=== PATIENT | female | born 1985 | race Caucasian/White ===

== ENCOUNTER → 2017-06-28 | Outpatient (CLI) | payer OTHER ==
[~2017-06-28] MED LIST: ASPI81TA28 PO; CALC500C3 PO; ENOX40IN SQ; HYDR-3419 PO; OPTIRAY 320 IV PRN; PEDICHW50 PO; birth control
--- NOTE | 2017-06-28 14:57 | DIAGNOSTIC IMAGING REPORT ---
(CHEST) THORAX WITH CLINICAL HISTORY: 32 years-old Female presenting with ASTHMA. TECHNIQUE: Multidetector CT imaging of the chest was performed after the administration of intravenous contrast. IV contrast: 93 mL of Optiray 320. A dose lowering technique was used consistent with the principles of ALARA (as low as reasonably achievable). COMPARISON: 03/30/2017. CT DOSE (mGy.cm): The estimated cumulative dose is 221.48 mGycm. FINDINGS: Tableau Analyst topogram: Unremarkable. On soft tissue windows, normal thyroid and thoracic inlet. Multiple enlarged mediastinal and bilateral hilar lymph nodes, similar to prior exam. Normal aorta. Normal heart size. No pericardial or pleural effusion. Upper abdomen normal. Splenules noted. On lung windows, dependent groundglass opacity likely atelectasis. Extensive nodular opacities in the apical segments of the upper lobes, left greater than right. These nodules appear to be either randomly distributed oriented perilymphatic distribution. Airways patent. On bone windows, normal osseous structures. IMPRESSION: 1. Nodularity in the upper lobes with mediastinal and bilateral hilar adenopathy. This appearance is most characteristic of sarcoidosis. Differential considerations include pneumoconiosis. Electronically signed by: Yossi Gallegos M.D. 06/28/2017 2:55 PM Dictated Date/Time: 06/28/2017 2:47 PM
== END | disposition home or self-care (01) ==
LOC: C.CTS 13:26
PROVIDERS: ATTEND Physician Assistant
DX: J45.909 Unspecified asthma, uncomplicated (principal); R91.8 Other nonspecific abnormal finding of lung field; R59.0 Localized enlarged lymph nodes

== ENCOUNTER 2017-08-05 05:03 | Day surgery (SDC) | payer OTHER ==
[2017-07-30 14:51] VITALS: BMI 29.0
[~2017-08-05] VITALS: Ht 154.9 cm; Wt 70.0 kg
[~2017-08-05 05:03] MED LIST changes: +AMT10 PO; -ASPI81TA28 PO; +BUPR-79 PO; +BUSP5TAB59 PO; -CALC500C3 PO; -ENOX40IN SQ; -HYDR-3419 PO; +MAGN400T6 PO; -OPTIRAY 320 IV PRN; -PEDICHW50 PO; +PRED10TA PO; -birth control
[2017-08-05 05:20] VITALS: Ht 154.9 cm; Wt 70.0 kg
[2017-08-05 05:26] VITALS: BP 115/64; PULSE 98; TEMP 37.3; O2SAT 97
[2017-08-05] MEDS ORDERED: LACTATED RINGER'S 1000ML 1,000 ML IV SCH (06:00)
[2017-08-05] MEDS ORDERED: ROCURONIUM BROMIDE 10 MG/ML 5 ML VIAL IV ONE (06:26)
[2017-08-05] MEDS ORDERED: LIDOCAINE HCL 2% 2 ML VIAL (20MG/ML) ONE (06:26)
[2017-08-05] MEDS ORDERED: FENTANYL CITRATE INJ 50 MCG/1 ML 2 ML VIAL ONE ×2 (06:26→07:29)
[2017-08-05] MEDS ORDERED: SUCCINYLCHOLINE CHLORIDE 20 MG/ML 10 ML VIAL IV ONE (06:26)
[2017-08-05] MEDS ORDERED: MIDAZOLAM HCL 1 MG/ML 2ML VIAL ONE (06:26)
[2017-08-05] MEDS ORDERED: PROPOFOL IV EMULSION 10 MG/ML 20 ML VIAL IV ONE ×2 (06:26→07:33)
[2017-08-05] MEDS ORDERED: DEXAMETHASONE SOD INJ 4 MG/ML VIAL ONE (06:26)
[2017-08-05] MEDS ORDERED: ONDANSETRON INJ 2 MG/ML 2 ML VIAL ONE (06:26)
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
--- NOTE | 2017-08-05 07:10 | History & Physical Bridge Note ---
H&P Re-Evaluation Bridge Note: I have examined the patient, reviewed the History & Physical and in the interval since the performance of the History & Physical I have noted the following changes of clinical significance: No changes noted
[2017-08-05] MEDS ORDERED: PHENYLEPHRINE HCL INJ 10 MG/ML VIAL ONE (07:44)
--- NOTE | 2017-08-05 08:09 | Discharge Instructions ---
Discharge Instructions Date of Service Aug 05, 2017. Admission Reason for Admission: Hilar Lymphadenopathy Discharge Discharge Diagnosis / Problem: granulomatous changes consistent with sarcoidosis Discharge Goals Goal(s): Diagnostic testing Activity Recommendations Activity Limitations: resume your previous activity . Instructions / Follow-Up Instructions / Follow-Up Follow-up in the [facility] pulmonary clinic Current Hospital Diet Patient's current hospital diet: Discharge Diet Recommended Diet: Regular Diet Procedures Procedures Performed: Flexible Bronchoscopy Endobronchial Ultrasound, Trans-Tracheal/Bronchial Needle Aspiration Bronchial Lavage Pending Studies Studies pending at discharge: no Medical Emergencies . Who to Call and When: Medical Emergencies: If at any time you feel your situation is an emergency, please call 911 immediately. . Non-Emergent Contact Non-Emergency issues call your: Brim Plater . . "Provider Documentation" section prepared by Jesse Zuñiga. . VTE Core Measure Inpt VTE Proph given/why not?: Treatment not indicated
--- NOTE | 2017-08-05 08:10 | Bronchoscopy Procedure Note ---
Bronchoscopy Procedure Note Procedure: Flexible-Bronchoscopy, EBUS, FNA, BAL Consent: Obtained through the patient placed into the chart Pre-Procedural Dx: Mediastinal lymphadenitis Post-Procedural Dx: Granulomatous changes consistent with sarcoidosis Analgesia: GETA Sedation: GETA Procedure: The Olympus video bronchoscope and EBUS scope were used for this procedure Initially the flexible bronchoscope was used for evaluation of the airways. An LMA Size 5 was used for this procedure and properly positioned Vocal Cords: Anatomically WNL Sub-Glottis & Trachea: Anatomically WNL Karen: Anatomically within normal limits Right bronchial tree: Right mainstem bronchus: Anatomically within normal limits Right upper lobe: Anatomically within normal limits Bronchus intermedius: Anatomically within normal limits Right middle lobe: Anatomically within normal limits Right lower lobe: Anatomically within normal limits Findings: No significant findings noted Left bronchial tree: Left mainstem bronchus: Anatomically within normal limits Left upper lobe: Anatomically within normal limits Lingula: Anatomically within normal limits Left lower lobe: Anatomically within normal limits Findings: No significant findings noted EBUS/CESAR: FNA Nicola Stations: 7: # of passes 4 4R: # of passes 3 4L: # of passes 3 BAL: Right upper lobe EBL: None Complications: None Follow-up: PACU
[2017-08-05] MEDS ORDERED: ATROPINE SULFATE 0.1 MG/ML 5ML SYR IV PRN (08:15)
[2017-08-05] MEDS ORDERED: ONDANSETRON INJ 2 MG/ML 2 ML VIAL IV PRN (08:15)
[2017-08-05] MEDS ORDERED: EpHEDrine SULFATE INJ 50 MG/ML AMP IV PRN (08:15)
[2017-08-05] MEDS ORDERED: FENTANYL CITRATE INJ 50 MCG/1 ML 2 ML VIAL IV PRN (08:15)
[2017-08-05] MEDS ORDERED: NALOXONE HCL 0.4 MG/1 ML VIAL/CARP ONE (08:16)
--- NOTE | 2017-08-05 09:44 | Anesthesiology Progress Note ---
Anesthesia Post Op Note Date & Time Aug 05, 2017 at 09:36 Vital Signs Pain Intensity: 0 Vital Signs Past 12 Hours Date Time Temp Pulse Resp B/P (MAP) Pulse Ox O2 Delivery O2 Flow Rate FiO2 08/05/17 09:25 113 17 111/70 95 Room Air 08/05/17 09:15 106 17 109/75 97 Nasal Cannula 2 08/05/17 09:05 100 16 109/75 97 Nasal Cannula 4 08/05/17 08:55 108 21 115/74 96 Nasal Cannula 4 08/05/17 08:45 113 19 102/86 96 Non-Rebreather 5 08/05/17 08:35 91 20 118/73 96 Non-Rebreather 15 08/05/17 08:25 111 16 86/43 89 Non-Rebreather 15 08/05/17 08:15 93 6 105/88 89 Non-Rebreather 15 08/05/17 08:12 36.1 102 6 130/73 78 Oxymask 15 08/05/17 05:26 37.3 98 16 115/64 (81) 97 Room Air Notes Mental Status: alert / awake / arousable, participated in evaluation Pt Amnestic to Procedure: Yes Nausea / Vomiting: adequately controlled Pain: adequately controlled Airway Patency, RR, SpO2: see Notes BP & HR: stable & adequate Hydration State: stable & adequate Anesthetic Complications: While the patient was being admitted to the PACU her respiratory rate and sp02 dropped. A jaw thrust was administered and her respiratory rate was around 6 breaths per minute. Her 02 sat was in the middle to high 80s. The 02 mask was switched to a nonrebreather mask and the patient was given 100 mcg of naloxone. With that her respiratory rate came up to 17, her sat came up to the low 90s and she gradually woke up. She was given a duoneb treatment and her room air sat at time of discharge was 94-95. Her lungs were clear.
[2017-08-05 09:45] VITALS: BP 118/59; PULSE 103; TEMP 37.2; O2SAT 94
[2017-08-05 10:14] VITALS: BP 100/58; PULSE 107; O2SAT 94
[2017-08-05 10:42] VITALS: BP 97/52; PULSE 112; TEMP 37.3; O2SAT 95
== END 2017-08-05 10:50 | disposition home or self-care (01) ==
LOC: C.ACU 05:03
PROVIDERS: ATTEND Internal Medicine Critical Care Medicine
DX: R05 Cough (principal); R06.02 Shortness of breath; R59.0 Localized enlarged lymph nodes; J45.909 Unspecified asthma, uncomplicated; Z87.891 Personal history of nicotine dependence; F41.9 Anxiety disorder, unspecified; Z87.828 Personal history of other (healed) physical injury and trauma; E66.9 Obesity, unspecified

== ENCOUNTER → 2017-10-13 | Outpatient (CLI) | payer OTHER ==
[~2017-10-13] MED LIST changes: +PERFLUTREN LIPID MICROSPHERE (DEFINITY) IV ONE
--- NOTE | 2017-10-13 09:41 | DIAGNOSTIC IMAGING REPORT ---
GI SERIES W/AIR ROUTINE CLINICAL HISTORY: 32 years-old Female with R13.10 DysphagiaPatient scheduled at [facility] October 13 UGI at 9:00. Acute dysphasia TECHNIQUE: A standard air contrast upper GI series was performed following administration of barium and effervescent crystals. Multiple spot fluoroscopic images were obtained and provided for review. COMPARISON STUDY: CT of the chest 06/28/2017 FLUOROSCOPY TIME: 3 minutes. 19 images were submitted. FINDINGS: The patient swallowed barium without difficulty. No aspiration was definitively visualized. The esophagus distended normally with barium and effervescent crystals. No strictures, mucosal ulcerations, or intraluminal mass lesions were identified involving the esophagus. There was no significant gastroesophageal reflux. Barium was seen to flow freely through the gastroesophageal junction. No active reflux was demonstrated with Valsalva maneuver. Evaluation of the stomach demonstrates no gastric mucosal irregularity or filling defect. There is a small diverticulum noted involving the second portion of the duodenum near the junction with the third segment. The duodenal bulb and sweep are otherwise unremarkable. IMPRESSION: 1. Small duodenal diverticulum with otherwise unremarkable upper GI series. 2. No gastroesophageal reflux identified. The above report was generated using voice recognition software. It may contain grammatical, syntax or spelling errors. Electronically signed by: Rafita Dean M.D. 10/13/2017 9:39 AM Dictated Date/Time: 10/13/2017 9:36 AM
--- NOTE | 2017-10-13 10:04 | DIAGNOSTIC IMAGING REPORT ---
THYROID ULTRASOUND HISTORY: R13.10 Dysphagia Patient scheduled at [facility] October 13 UGI at 9:00 COMPARISON: Neck CT 03/17/2017. FINDINGS: Right lobe: 4.7 x 1.8 x 1.7 cm. There are few subcentimeter hypoechoic nodules/cysts measuring up to 3 mm. These do not meet sonographic criteria for biopsy. Left lobe: 4.3 x 1.5 x 1.1 cm. A 2 mm hypoechoic lesion/cyst. Isthmus: 2 mm in thickness. No nodules. IMPRESSION: A few scattered subcentimeter hypoechoic nodules/cysts measuring up to 3 mm. These do not meet sonographic criteria for biopsy. Electronically signed by: Laci Mcguire M.D. 10/13/2017 10:03 AM Dictated Date/Time: 10/13/2017 10:02 AM
--- NOTE | 2017-10-13 16:41 | EXERCISE STRESS ECHO ---
*NOTICE TO RECEIVING [employer] This information is strictly Confidential and protected under [place] law. [place] law prohibits you from making any further disclosure of this information unless further disclosure is expressly permitted by the written consent of the person to whom it pertains or is authorized by law. A general authorization for the release of medical or other information is not sufficient for this purpose. Hospital accepts no responsibility if the information is made available to any other person, INCLUDING THE PATIENT. Interpretation Summary * Name: EDISON DENG Study Date: 10/13/2017 09:58 AM BP: 101/68 mmHg * Patient Location: [facility] HR: 59 * : 1985 (M/d/yyyy) Gender: Female Height: 61 in * Age: 32 yrs Ethnicity: CA Weight: 145 lb * Ordering Physician: Jl Loza * Referring Physician: Jl Loza PA-C * Performed By: Vicki Rivera RDCS * * Reason For Study: CHEST PAIN * BSA: 1.6 m2 * -- Conclusions -- * Stress Echo: * 1. Negative stress echo for ischemia at 85 % MPHR. * 2. Negative exercise ECG for ischemia at 85 % MPHR. * 3. Mildly blunted blood pressure response to exercise. * 4. No arrhythmia. * 5. Study terminated due to dyspnea. No chest pain reported. * 6. Below average exercise tolerance. * 7. Technically difficult study, enhanced with IV Definity. * Echo: * 1. Normal left ventricular size and systolic function. EF 55-60%. No regional wall motion abnormalities. No left ventricular hypertrophy. No significant diastolic dysfunction. * 2. No significant valvular abnormalities. * 3. Normal estimated right ventricular systolic pressure; 19mmHg. Procedure Details * ECHOEX, CPT #42615 * A contrast injection of Definity was performed to improve assessment of LV function. * Contrast was injected into an intravenous site in the right arm. * One vial of Definity ultrasound contrast was diluted in normal saline to a total volume of 10 ml. A total of '4' ml of solution was administered during imaging. * Lot # [id number] of Definity utilized for procedure. * Expiration date OCT 08. * The attending nurse who injected the contrast agent was SIOMARA SONG RN. Left Ventricle * The left ventricle is normal in size. * There is normal left ventricular wall thickness. * Ejection Fraction = 55-60%. * Resting wall motion: Normal. Stress wall motion: Appropriate increase in Left ventricular systolic function and decrease in cavity size. No stress induced segmental wall motion abnormalities. * The left ventricular ejection fraction increases normally with stress. The left ventricular end-systolic cavity size reduces post-stress (normal response). The left ventricular wall motion with stress is normal. * No regional wall motion abnormalities noted. Right Ventricle * The right ventricle is normal in size and function. * The right ventricular systolic function is normal as assessed by tricuspid annular plane systolic excursion (TAPSE) (normal >1.5 cm). Atria * The left atrial size is normal. * Right atrial size is normal. * There is no evidence of atrial septal defect, but resolution does not allow assessment for a patent foramen ovale. Mitral Valve * The mitral valve leaflets appear normal. There is no evidence of stenosis, fluttering, or prolapse. * There is trace mitral regurgitation. Tricuspid Valve * The tricuspid valve is not well visualized, but is grossly normal. * There is no tricuspid stenosis. * There is trace tricuspid regurgitation. Aortic Valve * The aortic valve is trileaflet. * No hemodynamically significant valvular aortic stenosis. * There is no significant aortic regurgitation. Pulmonic Valve * The pulmonary valve is inadequately visualized, but the Doppler data is adequate for interpretation. * There is no significant pulmonary regurgitation. Great Vessels * The aortic root is normal size. * Aortic arch of normal dimension. * Normal pulmonary venous flow pattern. Normal IVC size and inspiratory collapse. Pericardium * There is no pericardial effusion. Stress Parameters * Sinus rhythm with sinus arrhythmia at 61 bpm. * No significant ST changes. No arrhythmia. * Rest heart rate was '59' BPM. * Rest blood pressure was '101/68' * Maximum heart rate achieved was 162 bpm. * Maximum heart rate was 85 % of maximum age-predicted heart rate. * Maximum blood pressure was '119/66' * Total exercise time was '6:37' * Maximum exercise MET level achieved was '7.90' METS * Maximum treadmill speed was '3.40' miles per hour. * Maximum treadmill elevation was '14'% grade. * Exercise was terminated due to 'Dyspnea' MMode 2D Measurements and Calculations IVSd 0.81 cm IVSs 1.1 cm LVIDd 4.0 cm LVIDs 2.8 cm LVPWd 0.92 cm LVPWs 1.2 cm IVS/LVPW 0.88 FS 29.5 % EDV(Teich) 70.3 ml ESV(Teich) 30.2 ml EF(Teich) 57.0 % EDV(cubed) 64.4 ml ESV(cubed) 22.6 ml EF(cubed) 64.9 % % IVS thick 30.4 % % LVPW thick 32.4 % LV mass(C)d 104.6 grams LV mass(C)dI 63.5 grams/m\S\2 LV mass(C)s 92.6 grams LV mass(C)sI 56.2 grams/m\S\2 SV(Teich) 40.1 ml SI(Teich) 24.3 ml/m\S\2 SV(cubed) 41.8 ml SI(cubed) 25.4 ml/m\S\2 Ao root diam 2.6 cm Ao root area 5.3 cm\S\2 LVAd ap4 27.4 cm\S\2 LVLd ap4 7.6 cm EDV(MOD-sp4) 80.4 ml EDV(sp4-el) 83.6 ml LVAs ap4 15.8 cm\S\2 LVLs ap4 6.2 cm ESV(MOD-sp4) 35.2 ml ESV(sp4-el) 34.4 ml EF(MOD-sp4) 56.3 % EF(sp4-el) 58.9 % LVAd ap2 21.7 cm\S\2 LVLd ap2 7.5 cm EDV(MOD-sp2) 50.2 ml EDV(sp2-el) 53.1 ml LVAs ap2 12.7 cm\S\2 LVLs ap2 6.2 cm ESV(MOD-sp2) 22.3 ml ESV(sp2-el) 22.1 ml EF(MOD-sp2) 55.6 % EF(sp2-el) 58.4 % LVLd %diff -1.63 % EDV(MOD-bp) 63.7 ml LVLs %diff -0.10 % ESV(MOD-bp) 28.0 ml EF(MOD-bp) 56.1 % SV(MOD-sp4) 45.2 ml SI(MOD-sp4) 27.5 ml/m\S\2 SV(MOD-sp2) 27.9 ml SI(MOD-sp2) 17.0 ml/m\S\2 SV(MOD-bp) 35.7 ml SI(MOD-bp) 21.7 ml/m\S\2 SV(sp4-el) 49.2 ml SI(sp4-el) 29.9 ml/m\S\2 SV(sp2-el) 31.1 ml SI(sp2-el) 18.8 ml/m\S\2 Doppler Measurements and Calculations MV E max marnie 86.3 cm/sec MV A max marnie 60.0 cm/sec MV E/A 1.4 MV dec time 0.27 sec Ao V2 max 119.9 cm/sec Ao max PG 5.8 mmHg Ao max PG (full) 1.7 mmHg LV V1 max PG 4.0 mmHg LV V1 max 100.1 cm/sec TV E max marnie 56.1 cm/sec TR max marnie 197.0 cm/sec RVSP(TR) 18.5 mmHg RAP systole 3.0 mmHg
== END | disposition home or self-care (01) ==
LOC: C.CPL 08:43
PROVIDERS: ATTEND Physician Assistant
DX: R00.2 Palpitations (principal); R13.10 Dysphagia, unspecified